=== PATIENT | female | born 1990 | race Caucasian/White ===

== ENCOUNTER 2017-12-17 15:37 | Outpatient (CLI) | payer MEDICAID ==
[2017-12-17] MEDS: LACTATED RINGER'S 1,000 ML IV* (17:33)
[2017-12-17 18:08] LABS: ADD UMIC YES; UR ASCORBIC ACID 20 mg/dL (NEGATIVE); UR BACTERIA FEW /HPF (NONE SEEN); UR BILIRUBIN (Dip) NEGATIVE (NEGATIVE); UR BLOOD (Dip) NEGATIVE (NEGATIVE); UR CLARITY CLOUDY (CLEAR); UR COLOR YELLOW (YELLOW); UR GLUCOSE (Dip) NEGATIVE (NEGATIVE); UR KETONES (Dip) NEGATIVE (NEGATIVE); UR LEUKOCYTE ESTERASE (Dip) NEGATIVE Leu/ul (NEGATIVE); UR MUCUS FEW /HPF (NONE SEEN); UR NITRITE (Dip) NEGATIVE (NEGATIVE); UR RBC 1 /HPF (0-5); UR SPECIFIC GRAVITY (Dip) 1.012 (1.003-1.030); UR TOTAL PROTEIN (Dip) 1+ mg/dl (NEGATIVE); UR UROBILINOGEN (Dip) NEGATIVE (NEGATIVE); UR WBC 1 /HPF (0-5)
[2017-12-17 18:28] LABS: AMPHETAMINE/METHAMPHETAMINE Negative (NEGATIVE); BARBITURATES Negative (NEGATIVE); BENZODIAZEPINES Negative (NEGATIVE); CANNABINOIDS Negative (NEGATIVE); COCAINE Negative (NEGATIVE); OPIATES Negative (NEGATIVE)
== END 2017-12-17 19:25 | disposition home or self-care (01) ==
LOC: OBT 15:37 → L-D 15:38 → OBT 19:25
DX: O24.419 Gestational diabetes mellitus in pregnancy, unspecified control (principal); Z3A.31 31 weeks gestation of pregnancy
CPT/HCPCS: 36415; 76817; 76818; 80307; 81001; 87086; 96360

== ENCOUNTER 2017-12-21 14:27 | Outpatient (CLI) | payer MEDICAID ==
[2017-12-21] MEDS: LACTATED RINGER'S 1,000 ML IV (16:10)
[2017-12-21 16:12] LABS: ADD UMIC NO; UR ASCORBIC ACID NEGATIVE (NEGATIVE); UR BILIRUBIN (Dip) NEGATIVE (NEGATIVE); UR BLOOD (Dip) NEGATIVE (NEGATIVE); UR CLARITY CLEAR (CLEAR); UR COLOR STRAW (YELLOW); UR GLUCOSE (Dip) NEGATIVE (NEGATIVE); UR KETONES (Dip) NEGATIVE (NEGATIVE); UR LEUKOCYTE ESTERASE (Dip) NEGATIVE Leu/ul (NEGATIVE); UR NITRITE (Dip) NEGATIVE (NEGATIVE); UR SPECIFIC GRAVITY (Dip) 1.004 (1.003-1.030); UR TOTAL PROTEIN (Dip) NEGATIVE (NEGATIVE); UR UROBILINOGEN (Dip) NEGATIVE (NEGATIVE)
== END 2017-12-21 17:50 | disposition home or self-care (01) ==
LOC: OBT 14:27 → L-D 14:28 → OBT 17:50
DX: O62.9 Abnormality of forces of labor, unspecified (principal); Z3A.32 32 weeks gestation of pregnancy
CPT/HCPCS: 76818; 81003; 96360; 96361

== ENCOUNTER 2017-12-24 13:12 | Outpatient (CLI) | payer MEDICAID ==
[2017-12-24] MEDS: LACTATED RINGER'S 1,000 ML IV (16:18)
== END 2017-12-24 18:01 | disposition home or self-care (01) ==
LOC: OBT 13:12 → L-D 13:14 → OBT 18:01
DX: O24.419 Gestational diabetes mellitus in pregnancy, unspecified control (principal); Z3A.22 22 weeks gestation of pregnancy
CPT/HCPCS: 76817; 76818; 82731; 96360; 96361

== ENCOUNTER 2017-12-28 12:48 | Outpatient (CLI) | payer MEDICAID ==
[2017-12-28 14:56] LABS: ADD UMIC NO; UR ASCORBIC ACID NEGATIVE (NEGATIVE); UR BILIRUBIN (Dip) NEGATIVE (NEGATIVE); UR BLOOD (Dip) NEGATIVE (NEGATIVE); UR CLARITY CLEAR (CLEAR); UR COLOR COLORLESS (YELLOW); UR GLUCOSE (Dip) NEGATIVE (NEGATIVE); UR KETONES (Dip) NEGATIVE (NEGATIVE); UR LEUKOCYTE ESTERASE (Dip) NEGATIVE Leu/ul (NEGATIVE); UR NITRITE (Dip) NEGATIVE (NEGATIVE); UR SPECIFIC GRAVITY (Dip) 1.001 (1.003-1.030); UR TOTAL PROTEIN (Dip) NEGATIVE (NEGATIVE); UR UROBILINOGEN (Dip) NEGATIVE (NEGATIVE)
== END 2017-12-28 15:00 | disposition home or self-care (01) ==
LOC: OBT 12:48 → L-D 12:52 → OBT 15:00
DX: O24.419 Gestational diabetes mellitus in pregnancy, unspecified control (principal); Z3A.33 33 weeks gestation of pregnancy
CPT/HCPCS: 76818; 81003; 82962; 87086

== ENCOUNTER 2017-12-31 08:19 | Outpatient (CLI) | payer MEDICAID ==
[2017-12-31] MEDS: LACTATED RINGER'S 1,000 ML IV (10:02)
== END 2017-12-31 11:56 | disposition home or self-care (01) ==
LOC: OBT 08:19 → L-D 08:20 → OBT 11:56
DX: O24.419 Gestational diabetes mellitus in pregnancy, unspecified control (principal); Z3A.33 33 weeks gestation of pregnancy
CPT/HCPCS: 36415; 76817; 76818; 96360

== ENCOUNTER 2018-01-07 08:14 | Outpatient (CLI) | payer MEDICAID ==
[2018-01-07 10:15] LABS: ADD UMIC NO; UR ASCORBIC ACID NEGATIVE (NEGATIVE); UR BILIRUBIN (Dip) NEGATIVE (NEGATIVE); UR BLOOD (Dip) NEGATIVE (NEGATIVE); UR CLARITY CLEAR (CLEAR); UR COLOR COLORLESS (YELLOW); UR GLUCOSE (Dip) NEGATIVE (NEGATIVE); UR KETONES (Dip) NEGATIVE (NEGATIVE); UR LEUKOCYTE ESTERASE (Dip) NEGATIVE Leu/ul (NEGATIVE); UR NITRITE (Dip) NEGATIVE (NEGATIVE); UR SPECIFIC GRAVITY (Dip) 1.002 (1.003-1.030); UR TOTAL PROTEIN (Dip) NEGATIVE (NEGATIVE); UR UROBILINOGEN (Dip) NEGATIVE (NEGATIVE)
== END 2018-01-07 11:25 | disposition home or self-care (01) ==
LOC: OBT 08:14 → L-D 08:17 → OBT 11:25
DX: O24.419 Gestational diabetes mellitus in pregnancy, unspecified control (principal); Z3A.34 34 weeks gestation of pregnancy
CPT/HCPCS: 76818; 81003

== ENCOUNTER 2018-01-11 11:51 | Outpatient (CLI) | payer MEDICAID ==
[2018-01-11] MEDS ORDERED: LACTATED RINGER'S 1,000 ML IV (17:30)
[2018-01-11] MEDS: LACTATED RINGER'S 1,000 ML IV (17:39)
[2018-01-11] MEDS: TERBUTALINE 1 MG/ML INJ SC (21:38)
== END 2018-01-11 22:18 | disposition home or self-care (01) ==
LOC: OBT 11:51 → L-D 11:51 → OBT 22:18
DX: O24.419 Gestational diabetes mellitus in pregnancy, unspecified control (principal); Z3A.35 35 weeks gestation of pregnancy
CPT/HCPCS: 36415; 76818; 82962; 96360; 96361; 96372